=== PATIENT | female | born 1940 | race Caucasian/White ===

== ENCOUNTER → 2018-05-01 | Outpatient (CLI) | payer OTHER | LOC: BHCLAF 14:00 | PROVIDERS: ATTEND Internal Medicine Cardiovascular Disease | DX: I35.0 Nonrheumatic aortic (valve) stenosis (principal) | CPT/HCPCS: 93306-PO ==

== ENCOUNTER 2018-05-13 06:09 | Day surgery (SDC) | payer OTHER ==
[2018-05-13] MEDS ORDERED: DIAZEPAM 5 MG TAB PO ONE (06:14)
[2018-05-13] MEDS ORDERED: ASPIRIN EC 325 MG TAB PO ONE (06:14)
[2018-05-13] MEDS ORDERED: NS 1,000 ML IV ONE (06:14)
[2018-05-13] MEDS ORDERED: diphenhydrAMINE 25 MG CAP PO ONE (06:14)
[2018-05-13] MEDS ORDERED: FAMOTIDINE 20 MG TAB PO ONE (06:14)
--- NOTE | 2018-05-13 06:34 | PDHPUP ---
History & Physical Update H&P update statement: This history and physical update is based on an assessment of the patient which was completed after admission or registration (within 24 hours), but prior to the surgery/procedure. H&P update: H&P reviewed & patient examined, no change in patient's condition since H&P completed
--- NOTE | 2018-05-13 06:35 | PDPROPOC ---
Sedation Plan of Care Sedation Plan of Care: mental status noted, patient educated of risks, benefits , alternatives, patient can tolerate sedation ASA Classification: ASA 2 Planned drugs: fentanyl, midazolam Mallampati Score: Class 2 Mallampati Reference Image: Patient passed 3-3-2 rule?: Yes
[2018-05-13] MEDS ORDERED: CLOPIDOGREL BISULFATE 75 MG TAB PO ONE (06:45)
[2018-05-13] MEDS ORDERED: LIDOCAINE 1% 300 MG/30 ML SDV ONE (07:09)
[2018-05-13] MEDS ORDERED: MIDAZOLAM 2 MG/2 ML VIAL ONE (07:10)
[2018-05-13] MEDS ORDERED: IOPAMIDOL (ISOVUE-370) 150 ML BTL IV ONE (07:10)
[2018-05-13] MEDS ORDERED: fentaNYL 100 MCG/2 ML INJ ONE (07:10)
[2018-05-13 07:16] LABS: INR 0.98 (0.83-1.16); PROTIME(PATIENT) 13.2 SEC (12.0-15.0)
[2018-05-13 07:24] LABS: PLATELET COUNT 237 10^3/uL (150-400)
[2018-05-13] MEDS ORDERED: NITROGLYCERIN 1,500 MCG/15 ML VIAL MISC ONE (07:49)
[2018-05-13] MEDS ORDERED: ATROPINE SULFATE 1 MG/10 ML SYR IVP PRN (09:45)
[2018-05-13] MEDS ORDERED: HYDROCODONE/APAP 5/325 TAB PO PRN (09:45)
[2018-05-13] MEDS ORDERED: OXYCODONE/APAP 5/325 TAB PO PRN (09:45)
[2018-05-13] MEDS ORDERED: ONDANSETRON 4 MG/2 ML VIAL IVP PRN (09:45)
[2018-05-13] MEDS ORDERED: NITROGLYCERIN 0.4 MG BTL SL PRN (09:45)
--- NOTE | 2018-05-13 11:00 | CPIP ---
DATE OF PROCEDURE: 05/13/2018 INDICATION FOR PROCEDURE: Shortness of breath, critical aortic stenosis. PROCEDURE: 1. Nonselective left groin sheathogram. 2. 7-Afghan sheath in the left common vein. 3. Right heart catheter using [place] catheter. 4. Bilateral coronary angiography. 5. Abdominal angiogram. HISTORY: Briefly, this is a 78-year-old female with history of severe of worsening shortness of anamaria th with severe aortic stenosis. The patient had seen Dr. Ernie Parmar who deemed the patient to be a s uitable candidate for transfemoral TAVR. DESCRIPTION OF PROCEDURE: After informed consent was obtained, the patient was the brought to [facility] ere the left groin was prepped and draped in a sterile fashion. Using lidocaine, insertion of a 7-Fr ench sheath in left common femoral vein, 6-Afghan left common femoral artery verified angiographicall y. A right heart catheter was then advanced. Wedge pressure was mean of 13, A-wave 19, A-wave 18, P A pressure systolic 53, diastolic 9, mean of 27. RV pressure of 50, diastolic 1, end of 8. RA press ure mean of 4, A-wave 8, V-wave 12. Cardiac output is 6.7 Michi, cardiac index 3.3, PA sat 79%, FA sa t 94%. [place] catheter was then removed. A JL4 catheter was then advanced to the left coronary artery. Images of the left coronary artery revealed normal left main. Left circumflex gave off a large edward nal 1 proximally, which bifurcated, which was healthy and free of disease. This was a left dominant circulation with an LPDA and LPLS both of which were healthy and free of disease. The LAD, itself, h ad mild 20% to 30% proximal disease at the takeoff of a medium-sized diagonal artery, which was healt hy and free of disease. Distally, the LAD appeared to be healthy and free of disease. After these images were obtained, the JL4 catheter was removed. The JR4 catheter advanced to the rig ht coronary artery. Images of the right coronary artery revealed 80% to 90% ostial disease in a nond ominant right coronary artery. Distally, there was an RV marginal, which was healthy and free of dis ease, and distally, there was an another additional marginal branch, which was healthy and free of di sease. After these images were obtained, JR4 catheter was removed. Pigtail catheter advanced to the abdomen . Angiography of the abdominal aorta showed widely patent aorta, bilateral common, external, interna l iliac arteries. Bilateral common femoral artery is patent. After these images were obtained, the pigtail catheter was removed over the guidewire. The left groin was closed with manual pressure. Milo bass tolerated the procedure well without complication. IMPRESSION: 1. Left dominant coronary circulation with mild 20% to 30% disease in the mid left anterior descendi ng. 2. 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 3. Moderate pulmonary hypertension. 4. Normal cardiac output. PLAN: The patient has ostial disease in a nondominant right coronary artery, thus , no intervention is warranted at this point. Left dominant circulation appears to be healthy with only mild plaque in the left anterior descending. Will proceed with CT-A of the chest, abdomen, and pelvis, as well as carotid ultrasound today. She will be discharged home later today and follow up in the office in 1 w xuan's time. /[id number]/MODL
--- NOTE | 2018-05-13 11:18 | CPEKG ---
Test Reason : OPEN Blood Pressure : / mmHG Vent. Rate : 060 BPM Atrial Rate : 062 BPM P-R Int : 165 ms QRS Dur : 093 ms QT Int : 445 ms P-R-T Axes : 037 -18 083 degrees QTc Int : 445 ms Sinus rhythm Multiple ventricular premature complexes Borderline left axis deviation Consider anterior infarct Abnormal T, consider ischemia, lateral leads Confirmed by Eliud Riley ([id number]) on 05/13/2018 11:17:43 AM Referred By: Confirmed By:Eliud Riley
[2018-05-13] MEDS ORDERED: IOPAMIDOL (ISOVUE 370) 100 ML BTL IV ONE (11:45)
== END 2018-05-13 13:10 | disposition home or self-care (01) ==
LOC: FCATH 06:09
PROVIDERS: ATTEND Internal Medicine Cardiovascular Disease
DX: I35.0 Nonrheumatic aortic (valve) stenosis (principal); E11.9 Type 2 diabetes mellitus without complications; Z87.442 Personal history of urinary calculi; E78.5 Hyperlipidemia, unspecified; I10 Essential (primary) hypertension; Z88.0 Allergy status to penicillin; Z88.2 Allergy status to sulfonamides; R06.00 Dyspnea, unspecified; I27.20 Pulmonary hypertension, unspecified; I70.0 Atherosclerosis of aorta
CPT/HCPCS: J1644; J2250; J3010; Q9967

== ENCOUNTER 2018-06-01 06:08 | Inpatient (IN) | payer OTHER ==
[2018-06-01] MEDS ORDERED: NS 1,000 ML IV ONE (06:12)
--- NOTE | 2018-06-01 06:27 | PDPROPOC ---
Sedation Plan of Care Sedation Plan of Care: mental status noted, patient educated of risks, benefits , alternatives, patient can tolerate sedation ASA Classification: ASA 3 Planned drugs: other Mallampati Score: Class 3 Mallampati Reference Image: Patient passed 3-3-2 rule?: Yes
[2018-06-01] MEDS ORDERED: CLINDAMYCIN 600 MG/DEXTROSE 50 ML IV ONE (06:45)
[2018-06-01] MEDS ORDERED: LIDOCAINE 1% 300 MG/30 ML SDV ONE (06:52)
[2018-06-01] MEDS ORDERED: IOPAMIDOL (ISOVUE-370) 150 ML BTL IV ONE (06:53)
--- NOTE | 2018-06-01 07:02 | PDANEPAE ---
ANE History of Present Illness 78 yo for tavr ANE Past Medical History - Cardiovascular History Hx Hypertension: Yes Hx Arrhythmias: No Hx Chest Pain: No Hx Coronary Artery / Peripheral Vascular Disease: No Hx CHF / Valvular Disease: Yes Hx Palpitations: No - Pulmonary History Hx COPD: No Hx Asthma/Reactive Airway Disease: No Hx Recent Upper Respiratory Infection: No Hx Oxygen in Use at Home: No Hx Sleep Apnea: No ANE Review of Systems Review of Systems: - Exercise capacity METS (RN): 3 METS ANE Patient History - Allergies Allergies/Adverse Reactions: amoxicillin trihydrate [From Augmentin] Allergy (Severe, Verified 05/23/09 11:29 ) ITCH potassium clavula *RETIRED-02/10/12 [From Augmentin] Allergy (Severe, Verified 05/23/09 11:29) ITCH Sulfa (Sulfonamide Antibiotics) Allergy (Severe, Verified 05/23/09 11:28) Hives EZEQUIEL Inhibitors [Ezequiel Inhibitors] Allergy (Intermediate, Verified 05/23/09 11:29) COUGH adhesive tape [Adhesive Tape] Allergy (Intermediate, Verified 05/13/18 06:18) REDNESS - Home Medications Home medications: home medication list seen and reviewed Home Medications: Spironolactone [Aldactone 25 MG (*)] 25 mg PO DAILY 05/12/18 [Last Taken Unknown ] Aspirin [Aspirin 81mg (*)] 81 mg PO DAILY 05/13/18 [Last Taken 05/12/18] Atorvastatin Calcium [Lipitor 20 mg (*)] 20 mg PO DAILY 05/13/18 [Last Taken Unknown] - NPO status NPO Status: no food or drink >8 hours - Smoking Hx Smoking Status: Never smoked ANE Labs/Vital Signs - Vital Signs Height: 5 ft 6.14 in Weight: 91.6 kg ANE Physical Exam - Airway Neck exam: FROM Mallampati Score: Class 2 Mouth exam: dentures - Pulmonary Pulmonary: no respiratory distress - Cardiovascular Cardiovascular: regular rate and rhythym - ASA Status ASA Status: III ANE Anesthesia Plan Anesthesia Plan: MAC Lines/Monitors: central line
[2018-06-01] MEDS ORDERED: fentaNYL 100 MCG/2 ML INJ ONE (07:17)
[2018-06-01] MEDS ORDERED: PROPOFOL/EMULSION 500 MG/50 ML BOTTLE IV ONE ×2 (07:18→08:11)
[2018-06-01] MEDS ORDERED: PROTAMINE SULFATE 50 MG/5 ML VIAL IVP ONE (08:27)
[2018-06-01] MEDS ORDERED: IBUPROFEN 800 MG TAB PO PRN (08:47)
[2018-06-01] MEDS ORDERED: hydrALAZINE 20 MG/ML VIAL IVP PRN (08:47)
[2018-06-01] MEDS ORDERED: ATROPINE SULFATE 1 MG/10 ML SYR IVP PRN (08:47)
[2018-06-01] MEDS ORDERED: ONDANSETRON DISINTEGRATING 4 MG TAB PO PRN (08:47)
[2018-06-01] MEDS ORDERED: HYDROmorphONE/DILAUDID 1 MG/ML INJ IVP PRN (08:47)
[2018-06-01] MEDS ORDERED: ONDANSETRON 4 MG/2 ML VIAL IVP PRN (08:47)
[2018-06-01] MEDS ORDERED: oxyCODONE IR 5 MG TAB PO PRN (08:47)
[2018-06-01] MEDS ORDERED: NALOXONE HCL 0.4 MG/ML INJ IVP PRN (08:55)
--- NOTE | 2018-06-01 08:57 | POSTANESTH ---
Post Anesthetic Evaluation Cardiovascular Status: Normal, Stable Respiratory Status: Tx Decrease in SpO2 Level of Consciousness/Mental Status: Can Participate in Eval Pain Control: Adequate, Prn Tx Ordered Nausea/Vomiting Control: Adequate, Prn Tx Ordered Complications Possibly Related to Anesthesia: None Noted
--- NOTE | 2018-06-01 09:10 | CPIP ---
DATE OF PROCEDURE: 06/01/2018 INDICATIONS FOR PROCEDURE: Critical symptomatic aortic stenosis. CO-SURGEONS: Dr. Miguel Hines DO; Dr. Miguel Fletcher MD; Dr. Marta Mirza MD. PROCEDURE: 1. Nonselective left groin sheathogram. 2. Nonselective right groin sheathogram, with upsizing to a 16-Guatemalan sheath with double Perclose pl acement. 3. Balloon aortic valvuloplasty using 18 x 60 balloon. 4. Placement of Medtronic CoreValve Evolut Pro 26 mm valve by the transfemoral route. 5. Aortic root angiography. 6. Left heart catheterization. INDICATIONS FOR PROCEDURE: Briefly, this is a 78-year-old female with a history of critical symptoma tic aortic stenosis. The patient was deemed to be a suitable candidate for transfemoral TAVR by two separate CT surgeons. DESCRIPTION OF PROCEDURE: After informed consent, the patient was brought to [facility], where the patient was sedated with MAC anesthesia. Dr. Fletcher placed a right IJ line, with plac ement of temporary pacemaker wire placed into the right ventricle, and capture was assessed. The pat ient was administered 9000 of heparin IV. An 8-Guatemalan sheath was placed in the left common femoral a rtery, verified angiographically. A 6-Guatemalan sheath was placed in the right common femoral artery, v erified angiographically, upsized to a 16-Guatemalan sheath after double Perclose placement. AL1 catheter with straight stiff Glidewire was used to cross the aortic valve, was switched out for a pigtail catheter, switched out for a Confida wire. The balloon aortic valvuloplasty commenced with an 18 x 60 balloon, with a pacing rate of 180 beats per minute. After this was performed, the balloo n was removed. We then proceeded with placement of a Medtronic CoreValve Evolut Pro 26 mm valve. Th is deployed successfully. After deployment, there was no perivalvular leak noted. The wire was removed. The guide catheter was then removed, and the right groin was closed with a rob ateral Perclose. The left groin was closed with an 8-Guatemalan Angio-Seal. The patient tolerated the p rocedure well, with no complications. IMPRESSION: Successful placement of Medtronic CoreValve Evolut Pro 26 mm valve via the transfemoral route. PLAN: The patient will be admitted to PCU. Further orders following clinical course. /[id number]/MODL
--- NOTE | 2018-06-01 10:33 | ECHO ---
[email or web address] [address] [address] Main: [phone] Fax: Transthoracic Echocardiogram Name: AZAR RICO MR#: [id number] Study Date: 06/01/2018 Study Time: 07:03 AM Date of : 1940 Age: 78 year(s) Height: 167.6 cm (66 in.) Weight: 88 kg (194 lb.) BSA: 1.97 m2 Gender: Female Examination: Limited Echo Indication: TAVR Image Quality: Contrast: Requested by: Jaret Martins BP: 161 mmHg/59 mmHg Heart Rate: Rhythm: Normal sinus rhythm Indication: TAVR Procedure Staff Ad Trafficker: Ja Coon RDCS Reading Physician: Jaret Martins MD Requesting Provider: Conclusions: Normal global systolic LV function. EF is 67 %. There was successful implantation of #26 percutaneous corevalve in the aortic position. There is no post aortic regurgitation. There is no compromise of the mitral valve. Preserved LV systolic function. There is no pericardial effusion.. Mild to moderate tricuspid valve regurgitation. Measurements: Chambers Valvular Assessment AV/MV Valvular Assessment TV/PV Normal Normal Normal Name Value Range Name Value Range Name Value Range IVSd (2D): 1.0 cm (0.6 cm-1.1 AV Vmax: 4.16 m/s (1 m/s-1.7 TR Vmax: 3.30 mm/s ( - ) cm) m/s) TR PGmax: 44 mmHg ( - ) LVDd (2D): 4.8 cm (3.9 cm-5.3 AV maxP mmHg ( - ) syst. PAP: 49 mmHg ( - ) cm) AV meanP mmHg ( - ) LVDs (2D): 3.0 cm (2.1 cm-4 OSCAR (VTI): 0.7 cm ( - ) cm) LVPWd (2D): 1.0 cm ( - ) LVOTd 2.0 cm 2.0 cm mm LVEF (MOD4): 67 % (>=55 %) Continued Measurements: Valvular Assessment TV/PV Name Value CVP (est.): 5 mmHg Findings: Left Ventricle: Patient: AZAR RICO Study Date: 06/01/2018 Page 1 of 2 07:03 AM Normal size left ventricle. No LV hypertrophy. Normal global systolic LV function. EF is 67 %. No regional wall motion abnormality. Right Ventricle: Normal size right ventricle. Normal RV function. Left Atrium: The left atrium is mildly dilated. Right Atrium: The right atrium is normal in size. Mitral Valve: The mitral valve is normal in appearance. Mild mitral valve regurgitation is present. Aortic Valve: There was successful implantation of #26 percutaneous corevalve in the aortic position. There is no post aortic regurgitation. There is no compromise of the mitral valve. Preserved LV systolic function. There is no pericardial effusion.. Tricuspid Valve: Mild to moderate tricuspid valve regurgitation. Pulmonic Valve: The pulmonic valve is normal in appearance and function. Aorta: The aorta is normal. Pericardium: No pericardial effusion. There is pericardial fat. (No Signature Object) Patient: AZAR RICO Study Date: 06/01/2018 Page 2 of 2 07:03 AM [id number]
[2018-06-01] MEDS ORDERED: ACETAMINOPHEN 325 MG TAB PO SCH (12:00)
--- NOTE | 2018-06-01 12:45 | PDMN ---
Medical Necessity Medical necessity: Pt meets IP criteria as of 06/01/2018 per and [facility] [place] S-1320 ( aortic valve replacement); Medicare IP only procedure
[2018-06-01] MEDS: ATORVASTATIN CALCIUM 20 MG TAB PO SCH (13:33)
[2018-06-01] MEDS: ASPIRIN 81 MG CHEWABLE TAB PO SCH (13:34)
[2018-06-01] MEDS: SPIRONOLACTONE 25 MG TAB PO SCH (13:34)
[2018-06-01] MEDS ORDERED: ACETAMINOPHEN 325 MG TAB PO PRN (14:00)
[2018-06-02 04:33] LABS: PLATELET COUNT 179 10^3/uL (150-400)
--- NOTE | 2018-06-02 07:59 | PDCARPN ---
Cardiology Progress Note Chief Complaint: SOB Assessment/Plan: Assessment: s/p TAVR Plan: 06/02/18 07:58 doing great OOB IS check echo low dose lasix Subjective: doing well Reviewed/Discussed With: multidisciplinary team Time Spent with Patient: greater than 25 minutes Time Spent with Patient: Greater than 25 minutes spent on this patients care, greater than 50% of time spent counseling, educating, and coordinating care regarding the above mentioned plan. Objective: Vital Signs (8 Hrs) Temp Pulse Resp BP Pulse Ox 06/02/18 03:31 36.9 C 67 16 143/61 H 90 L Intake/Output (24 Hrs) 06/01/18 06/02/18 06/03/18 05:59 05:59 05:59 Intake Total 2000 Output Total 250 Balance 1750 Intake: Oral (ml) 950 IV Intake (ml) 1000 IV Infused (ml) 50 Clindamycin 600 mg/ 50 Dextrose 50 ml @ 100 mls/ hr IV ONCE ONE Rx#: [id number] Output: Urine (ml) 250 Toilet 250 Other: Weight 91.6 kg Number of Voids Toilet 2 Result Diagrams: 06/02/18 03:32 06/02/18 03:32 - Physical Exam Constitutional: healthy appearing Eyes: PERRL Ears, Nose, Mouth, Throat: moist mucous membranes Cardiovascular: regular rate and rhythm Peripheral Pulses: 1+: femoral (R), femoral (L) Respiratory: clear to auscultate bilat Gastrointestinal: normoactive bowel sounds Genitourinary: no suprapubic tenderness Skin: no rashes Musculoskeletal: no muscular tenderness Neurologic: AAOx3 ICD10 Worksheet Patient Problems: Problems Problem Status Onset Aortic stenosis Acute 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
[2018-06-02] MEDS: FUROSEMIDE 20 MG TAB PO SCH (08:09)
[2018-06-02] MEDS: ASPIRIN 81 MG CHEWABLE TAB PO SCH (08:09)
[2018-06-02] MEDS: CLOPIDOGREL BISULFATE 75 MG TAB PO SCH (08:09)
[2018-06-02] MEDS: SPIRONOLACTONE 25 MG TAB PO SCH (08:09)
[2018-06-02] MEDS: ATORVASTATIN CALCIUM 20 MG TAB PO SCH (08:09)
--- NOTE | 2018-06-02 08:53 | ASMTCMCOM ---
CM Note CM Note Notes: Patient is POD #1 TAVR and doing well. She is normally independent. Lives with partner Darrian. No discharge needs anticipated. She will follow up with Cardiology as an outpatient. Current CM Discharge plan: independent Date Signed: 06/02/2018 08:53 AM Electronically Signed By:Angie Dunham RN
--- NOTE | 2018-06-02 10:20 | ECHO ---
[email or web address] [address] [address] Main: [phone] Fax: Transthoracic Echocardiogram Name: AZAR RICO MR#: [id number] Study Date: 06/02/2018 Study Time: 09:45 AM Date of : 1940 Age: 78 year(s) Height: 167.6 cm (66 in.) Weight: 91.17 kg (201 lb.) BSA: 2 m2 Gender: Female Examination: Echo Indication: Post TAVR Image Quality: Contrast: Requested by: Jaret Martins BP: 134 mmHg/74 mmHg Heart Rate: Rhythm: Normal sinus rhythm Indication: Post TAVR Procedure Staff Shipping Services Sales Representative: Ja Coon RDCS Reading Physician: Jaret Martins MD Requesting Provider: Conclusions: Normal global systolic LV function. EF is 75 %. There is a Corevalve in the aortic position. The AV Mean PG is 8 mmHg and the AV Vmax is 1.9 m/s. There is no perivalvular leaks, there is no aortic stenosis. No compromise of the mitral valve. There is no pericardial effusion.. Trivial tricuspid valve regurgitation. Measurements: Chambers Valvular Assessment AV/MV Valvular Assessment TV/PV Normal Normal Normal Name Value Range Name Value Range Name Value Range Ao Dannielle (MM): 2.2 cm (2.2 cm-3.7 AV Vmax: 1.94 m/s (1 m/s-1.7 TR Vmax: 2.61 mm/s ( - ) cm) m/s) TR PGmax: 27 mmHg ( - ) IVSd (2D): 1.1 cm (0.6 cm-1.1 AV maxP mmHg ( - ) syst. PAP: 32 mmHg ( - ) cm) AV meanP mmHg ( - ) PV Vmax: 1.05 m/s (0.6 m/s-0.9 LVDd (2D): 4.4 cm (3.9 cm-5.3 LVOT Vmax: 1.25 m/s (0.7 m/s-1.1 m/s) cm) m/s) PV PGmax: 4 mmHg ( - ) LVDs (2D): 2.5 cm (2.1 cm-4 OSCAR (Vmax): 2.0 cm2 ( - ) cm) OSCAR (VTI): 2.3 cm ( - ) LVPWd (2D): 1.0 cm ( - ) MV E Vmax: 0.75 m/s ( - ) LVOTd 2.0 cm 2.0 cm mm MV A Vmax: 0.76 m/s ( - ) LVEF (2D): 75 (>=54 %) MV E/A: 0.99 ( - ) Continued Measurements: Chambers Valvular Assessment AV/MV Valvular Assessment TV/PV Name Value Name Value Name Value LADs Lon.0 cm MV E' Septal: 0.05 m/s CVP (est.): 5 mmHg LA Area: 18.5 cm2 MV E/E' Septal: 14.50 Patient: AZAR RICO Study Date: 06/02/2018 Page 1 of 2 09:45 AM LA Volume: 55 ml MV E/E' Lateral: 16.00 LA Volume Index: 27.5 ml/m2 Findings: Left Ventricle: Normal size left ventricle. No LV hypertrophy. Normal global systolic LV function. EF is 75 %. No regional wall motion abnormality. Diastolic dysfunction is present. . Right Ventricle: Normal size right ventricle. Normal RV function. Left Atrium: The left atrium is normal in size. Right Atrium: The right atrium is normal in size. Mitral Valve: The mitral valve is normal in appearance and function. There is no significant mitral valve regurgitation. Aortic Valve: There is a Corevalve in the aortic position. The AV Mean PG is 8 mmHg and the AV Vmax is 1.9 m/s. There is no perivalvular leaks, there is no aortic stenosis. No compromise of the mitral valve. There is no pericardial effusion.. Tricuspid Valve: The tricuspid valve appears normal. Trivial tricuspid valve regurgitation. The pulmonary artery pressure is normal. Pulmonic Valve: The pulmonic valve is normal in appearance and function. Aorta: The aorta is normal. Pericardium: No pericardial effusion. (No Signature Object) Patient: AZAR RICO Study Date: 06/02/2018 Page 2 of 2 09:45 AM [id number]
[2018-06-03 04:45] LABS: PLATELET COUNT 163 10^3/uL (150-400)
--- NOTE | 2018-06-03 06:56 | PDCARPN ---
Cardiology Progress Note Chief Complaint: SOB Assessment/Plan: Assessment: s/p TAVR Plan: 06/02/18 07:58 doing great OOB IS check echo low dose lasix 06/03/18 06:55 doing great OOB d/c home f/u next week Subjective: doing great Reviewed/Discussed With: multidisciplinary team Time Spent with Patient: greater than 25 minutes Time Spent with Patient: Greater than 25 minutes spent on this patients care, greater than 50% of time spent counseling, educating, and coordinating care regarding the above mentioned plan. Objective: Vital Signs (8 Hrs) Temp Pulse Resp BP Pulse Ox 06/03/18 03:41 36.8 C 76 16 124/72 H 92 06/02/18 23:13 36.7 C 80 16 111/61 91 L Intake/Output (24 Hrs) 06/02/18 06/03/18 06/04/18 05:59 05:59 05:59 Intake Total 2000 1680 Output Total 250 2000 Balance 1750 -320 Intake: Oral (ml) 950 1680 IV Intake (ml) 1000 IV Infused (ml) 50 Clindamycin 600 mg/ 50 Dextrose 50 ml @ 100 mls/ hr IV ONCE ONE Rx#: [id number] Output: Urine (ml) 250 2000 Toilet 250 2000 Other: Weight 91.6 kg Number of Voids Toilet 2 Result Diagrams: 06/03/18 03:26 06/03/18 03:26 - Physical Exam Constitutional: healthy appearing Eyes: PERRL Ears, Nose, Mouth, Throat: moist mucous membranes Cardiovascular: regular rate and rhythm Peripheral Pulses: 1+: femoral (R), femoral (L) Respiratory: clear to auscultate bilat Gastrointestinal: normoactive bowel sounds Genitourinary: no suprapubic tenderness Skin: no rashes Musculoskeletal: no muscular tenderness Neurologic: AAOx3 Psychiatric: cooperative ICD10 Worksheet Patient Problems: Problems Problem Status Onset Aortic stenosis Acute 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
--- NOTE | 2018-06-03 07:29 | GDS ---
DISCHARGE DIAGNOSIS: Aortic stenosis. HOSPITAL COURSE: Briefly, this is a 78-year-old female with a history of severe symptomatic aortic s tenosis who underwent transfemoral TAVR on 06/01/2018. Postprocedure, the patient has done excellent , ambulating in the halls without problems. Her postprocedure echocardiogram looks excellent with no rmal ejection fraction with no perivalvular leak. The patient will be discharged home this morning w ith her home medications including Plavix as well as Lasix 20 mg p.o. daily. She will follow up with us in the office in 1 week's time. /[id number]/MODL
[2018-06-03 11:43] VITALS: BP 147/72
[2018-06-03] MEDS: CLOPIDOGREL BISULFATE 75 MG TAB PO SCH (12:31)
[2018-06-03] MEDS: FUROSEMIDE 20 MG TAB PO SCH (12:31)
== END 2018-06-03 12:54 | disposition home or self-care (01) | DRG 267 ==
LOC: FCATH 06:08 → F2W 08:47
PROVIDERS: ADMIT Internal Medicine Cardiovascular Disease; ATTEND Internal Medicine Cardiovascular Disease
PROC: 02RF38Z Replacement of Aortic Valve with Zooplastic Tissue, Percutaneous Approach (ICD-10-PCS; principal; 2018-06-01)
DX: I35.0 Nonrheumatic aortic (valve) stenosis (principal); Z00.6 Encounter for examination for normal comparison and control in clinical research program; E11.9 Type 2 diabetes mellitus without complications; E78.5 Hyperlipidemia, unspecified; I10 Essential (primary) hypertension
CPT/HCPCS: C1760; C1769; C1894; J1644; J2704; J2720; J3010; Q9967

== ENCOUNTER → 2018-07-02 | Outpatient (CLI) | payer OTHER | LOC: BHFA 11:30 | PROVIDERS: ATTEND Internal Medicine Cardiovascular Disease | DX: I35.9 Nonrheumatic aortic valve disorder, unspecified (principal) ==

== ENCOUNTER → 2018-07-07 | Outpatient (CLI) | payer OTHER | LOC: BHFA 11:30 | PROVIDERS: ATTEND Internal Medicine Cardiovascular Disease | DX: Z95.2 Presence of prosthetic heart valve (principal) ==